=== PATIENT | female | born 1960 | race Caucasian/White ===

== ENCOUNTER 2016-06-22 08:10 | Emergency (ER) | payer MEDICAID ==
[~2016-06-22] VITALS: Ht 157.5 cm; Wt 68.9 kg
[~2016-06-22 08:10] MED LIST: AMIT25TA9 PO; BISA-8 PO; BLAC40CA3 PO; CARI350T21 PO; DULO60CA PO; IBUP600T27 PO; MEDR5TAB4 PO; METH10SO PO; METH750T3 PO; NAPR220T56 PO; OXYB5TAB62 PO; PANTOPRAZOLE SOD DR 40 MG TAB PO; PREMARIN 0.625 MG PO; ROPI0.252 PO
[2016-06-22] MEDS ORDERED: ONDANSETRON HCL 4 MG/2 ML VIAL IV ONE (09:45)
[2016-06-22] MEDS ORDERED: KETOROLAC TROMETH 60MG/2ML VIAL IM ONE (10:00)
[2016-06-22 11:05] VITALS: BP 142/72
== END 2016-06-22 11:25 | disposition home or self-care (01) ==
LOC: ER 08:10
DX: N39.0 Urinary tract infection, site not specified (principal); F17.210 Nicotine dependence, cigarettes, uncomplicated; F11.10 Opioid abuse, uncomplicated; Z79.899 Other long term (current) drug therapy
CPT/HCPCS: 76775; 96372; 99284; J1885

== ENCOUNTER 2016-11-23 09:13 | Observation (INO) | payer MEDICAID ==
[~2016-11-23] VITALS: Ht 157.5 cm; Wt 70.8 kg
[~2016-11-23 09:13] MED LIST changes: +CARI-316 PO; -CARI350T21 PO
[2016-11-23 10:11] LABS: Urine Bilirubin Negative (Negative); Urine Blood Negative /uL (Negative); Urine Color Yellow (Yellow); Urine Glucose Normal (Normal); Urine Ketone Negative (Negative); Urine Nitrite Negative (Negative); Urine RBC <1 /hpf (0 - 4); Urine Squamous Epithelial Cell FEW /hpf (<5); Urine Urobilinogen Normal (Negative)
[2016-11-23 11:02] LABS: Basophils # (auto) 0.1 uL; CONDITION Y; Eosinophils # (auto) 0.1 uL; Eosinophils % (auto) 2.2 % (0.0-7.0); Hematocrit 30.5 % (36.0-46.0); Hemoglobin 10.1 g/dL (12.2-16.2); Lymphocytes # (auto) 2.8 uL; Lymphocytes % (auto) 43.6 % (10.0-50.0); Mean Corpuscular Hemoglobin 28.3 pg (28.0-32.0); Mean Corpuscular Hgb Conc. 33.2 g/dL (32.0-36.0); Mean Platelet Volume 7.5 fL (7.4-10.4); Monocytes # (auto) 0.4 uL; Monocytes % (auto) 5.7 % (0.0-12.0); Neutrophils % (auto) 47.5 % (37.0-80.0); Platelet Count (auto) 283 10^3/uL (140-450); Red Cell Distribution Width 15.4 % (11.6-16.0); White Blood Cell 6.4 10^3/uL (4.4-10.8)
[2016-11-23 11:18] LABS: Albumin 3.3 g/dL (3.4-5.0); BUN/Creatinine Ratio 13.8; Calcium 8.3 mg/dL (8.5-10.1); Potassium 3.9 mmol/L (3.5-5.1)
[2016-11-23 11:20] LABS: Bilirubin, Total 0.2 mg/dL (0.2-1.0); Total Protein 7.3 g/dL (6.4-8.2)
[2016-11-23 11:34] LABS: B-Type Natriuretic Peptide 33.76 pg/mL (0-100)
[2016-11-23 11:55] LABS: Temperature: 23.3 C (20.0-25.0)
[2016-11-23 12:00] LABS: INR 0.95 (0.9-1.15); Partial Thromboplastin Time 25.9 sec (22.64-33.71); Prothrombin Time 10.3 sec (9.37-12.3)
[2016-11-23 13:28] VITALS: BP 122/51
[2016-11-23] MEDS ORDERED: cefTRIAXone 1GM/50ML D5W 50 ML IV ONE (14:45)
[2016-11-23] MEDS ORDERED: HYDROcodone-ACET 10/325MG TAB PO ONE (15:30)
== END 2016-11-23 15:37 | disposition home or self-care (01) | DRG 463 ==
LOC: ER 09:13 → OVERFLOW 11:23 → ER 15:37
PROVIDERS: ADMIT Family Medicine; ATTEND Family Medicine
DX: N39.0 Urinary tract infection, site not specified (principal); D50.8 Other iron deficiency anemias; R60.0 Localized edema; Z82.49 Family history of ischemic heart disease and other diseases of the circulatory system; F17.210 Nicotine dependence, cigarettes, uncomplicated; Z79.899 Other long term (current) drug therapy; Z90.49 Acquired absence of other specified parts of digestive tract
CPT/HCPCS: 36415; 71010; 80053; 81001; 83735; 83880; 85025; 85610; 85730; 93970; 96365; 99285; G0378; J0696

== ENCOUNTER 2018-03-08 19:02 | Emergency (ER) | payer MEDICAID ==
[~2018-03-08] VITALS: Ht 157.5 cm; Wt 68.0 kg
[~2018-03-08 19:02] MED LIST changes: -CARI-316 PO; +CARI350T22 PO; +OXYB5TAB24 PO; -OXYB5TAB62 PO; -ROPI0.252 PO; +ROPI0.254 PO
[2018-03-08 19:51] VITALS: BP 152/86
[2018-03-08] MEDS: KETOROLAC TROMETH 60MG/2ML VIAL IM ONE (22:55)
== END 2018-03-08 22:55 | disposition home or self-care (01) ==
LOC: ER 19:02
DX: S80.212A Abrasion, left knee, initial encounter (principal); F17.210 Nicotine dependence, cigarettes, uncomplicated; Z79.899 Other long term (current) drug therapy; Z90.49 Acquired absence of other specified parts of digestive tract; Z98.51 Tubal ligation status; W01.198A Fall on same level from slipping, tripping and stumbling with subsequent striking against other object, initial encounter; Y93.89 Activity, other specified; Y99.8 Other external cause status; Y92.89 Other specified places as the place of occurrence of the external cause
CPT/HCPCS: 73562; 96372; 99283; J1885

== ENCOUNTER 2021-03-07 08:46 | Emergency (ER) | payer MEDICAID ==
[~2021-03-07] VITALS: Ht 157.5 cm; Wt 72.1 kg
[~2021-03-07 08:46] MED LIST changes: +AMIT25TA12 PO; -AMIT25TA9 PO; +METH750T22 PO; -METH750T3 PO; +NAPR1TAB93 PO; -NAPR220T56 PO
[2021-03-07 09:15] VITALS: BP 141/64
[2021-03-07] MEDS ORDERED: KETOROLAC TROMETH 60MG/2ML VIAL IM ONE (10:00)
[2021-03-07 10:27] LABS: Basophils # (auto) 0 10 ^3/uL (0-0.2); Basophils % (auto) 0.3 % (0.0-2.0); Eosinophils # (auto) 0.1 10 ^3/uL (0-0.8); Eosinophils % (auto) 2.8 % (0.0-7.0); Hematocrit 35.5 % (36.0-46.0); Hemoglobin 11.8 g/dL (12.2-16.2); Lymphocytes # (auto) 2.7 10 ^3/uL (0.4-5.4); Lymphocytes % (auto) 54.7 % (10.0-50.0); Mean Corpuscular Hemoglobin 28.8 pg (28.0-32.0); Mean Corpuscular Hgb Conc. 33.3 g/dL (32.0-36.0); Mean Corpuscular Volume 86.5 fL (80.0-100.0); Monocytes # (auto) 0.4 10 ^3/uL (0-1.3); Monocytes % (auto) 8.1 % (0.0-12.0); Neutrophils # (auto) 1.7 10 ^3/uL (1.6-8.6); Neutrophils % (auto) 34.1 % (37.0-80.0); Nucleated Red Blood Cells % 0.2 %; Red Blood Cells 4.11 10^6/uL (4.0-5.20); Red Cell Distribution Width 14.7 % (11.8-14.3); White Blood Cell 4.9 10^3/uL (4.4-10.8)
[2021-03-07 10:55] LABS: Urine Bacteria FEW /hpf (None Seen); Urine Blood Negative /uL (Negative); Urine Specific Gravity 1.009 (1.001-1.035); Urine WBC 2 /hpf (0 - 5)
[2021-03-07 11:01] LABS: BUN/Creatinine Ratio 14.6; Potassium 4.8 mmol/L (3.5-5.1)
== END 2021-03-07 11:27 | disposition home or self-care (01) ==
LOC: ER 08:46
DX: N20.0 Calculus of kidney (principal); K43.9 Ventral hernia without obstruction or gangrene; F17.210 Nicotine dependence, cigarettes, uncomplicated; Z90.49 Acquired absence of other specified parts of digestive tract; Z90.89 Acquired absence of other organs; Z79.1 Long term (current) use of non-steroidal anti-inflammatories (NSAID); Z79.899 Other long term (current) drug therapy
CPT/HCPCS: 36415; 74176; 80048; 81001; 85025; 96372; 99284; J1885

== ENCOUNTER 2021-06-27 03:33 | Emergency (ER) | payer MEDICAID ==
[~2021-06-27] VITALS: Ht 157.5 cm; Wt 72.1 kg
[2021-06-27] MEDS ORDERED: MORPHINE SULFATE 4 MG/ML SYR/VIAL IM ONE (04:00)
[2021-06-27 05:45] VITALS: BP 114/56
== END 2021-06-27 06:25 | disposition home or self-care (01) ==
LOC: ER 03:33 → EDBD 03:33 → ER 06:25
DX: S82.851A Displaced trimalleolar fracture of right lower leg, initial encounter for closed fracture (principal); F17.210 Nicotine dependence, cigarettes, uncomplicated; Z90.49 Acquired absence of other specified parts of digestive tract; Z90.89 Acquired absence of other organs; Z79.899 Other long term (current) drug therapy; W06.XXXA Fall from bed, initial encounter; Y93.89 Activity, other specified; Y92.89 Other specified places as the place of occurrence of the external cause; Y99.8 Other external cause status
CPT/HCPCS: 29515; 73590; 73610; 96372; 99284; J2270

== ENCOUNTER 2023-07-30 18:16 | Emergency (ER) | payer MEDICAID ==
[~2023-07-30] VITALS: Ht 157.5 cm; Wt 73.3 kg
[~2023-07-30 18:16] MED LIST changes: -AMIT25TA12 PO; +AMIT25TA20 PO; +BLAC40CA2 PO; -BLAC40CA3 PO; +CARI-578 PO; -CARI350T22 PO; -DULO60CA PO; +DULO60CA41 PO; +IBUP-1454 PO; -IBUP600T27 PO; +METH-1182 PO; -METH750T22 PO; -ROPI0.254 PO; +ROPI5TAB20 PO
[2023-07-30 19:25] LABS: Basophils # (auto) 0 10 ^3/uL (0-0.2); Basophils % (auto) 0.6 % (0.0-2.0); Eosinophils # (auto) 0.1 10 ^3/uL (0-0.8); Eosinophils % (auto) 2.4 % (0.0-7.0); Hematocrit 34.3 % (36.0-46.0); Hemoglobin 11.5 g/dL (12.2-16.2); Lymphocytes # (auto) 2.1 10 ^3/uL (0.4-5.4); Lymphocytes % (auto) 36.2 % (10.0-50.0); Mean Corpuscular Hemoglobin 28.9 pg (28.0-32.0); Mean Corpuscular Hgb Conc. 33.4 g/dL (32.0-36.0); Mean Corpuscular Volume 86.7 fL (80.0-100.0); Monocytes # (auto) 0.5 10 ^3/uL (0-1.3); Neutrophils # (auto) 3.1 10 ^3/uL (1.6-8.6); Neutrophils % (auto) 52.8 % (37.0-80.0); Red Blood Cells 3.96 10^6/uL (4.0-5.20); White Blood Cell 5.9 10^3/uL (4.4-10.8)
[2023-07-30 19:40] LABS: Alanine Aminotransferase 24 U/L (7-40); Albumin 4.5 g/dL (3.2-4.8); Alkaline Phosphatase 87 U/L (46-116); Anion Gap 7 (5-15); Aspartate Aminotransferase 31 U/L (13-40); BUN/Creatinine Ratio 14.4 (10.0-20.0); Bilirubin, Total 0.4 mg/dL (0.2-1.0); Blood Urea Nitrogen 14 mg/dL (9-23); Carbon Dioxide 25 mmol/L (20-30); Chloride 103 mmol/L (98-107); Glucose 102 mg/dL (74-106); Potassium 4.9 mmol/L (3.5-5.1); Sodium 135 mmol/L (136-145)
[2023-07-30 19:41] LABS: Total Protein 7.8 g/dL (5.7-8.2)
[2023-07-30 22:30] LABS: Urine Bacteria None Seen /hpf (None Seen)
[2023-07-30 22:38] LABS: Urine Blood Negative /uL (Negative); Urine Clarity Clear (Clear); Urine Color Light-Yellow (Yellow); Urine Protein, UAD Negative (Negative); Urine Specific Gravity 1.018 (1.001-1.035); Urine Urobilinogen Normal (Negative); Urine WBC <1 /hpf (0 - 5); Urine pH 6.5 (5.0-9.0)
[2023-07-30 22:40] VITALS: O2SAT 97
[2023-07-30] MEDS ORDERED: ZOFR4T PO (23:02)
[2023-07-30] MEDS ORDERED: POLY335015 PO (23:02)
[2023-07-30] MEDS ORDERED: DICY10CA PO (23:02)
[2023-07-30] MEDS ORDERED: FAMO20TA10 PO (23:02)
[2023-07-30] MEDS: SODIUM CHLORIDE 0.9% 1,000 ML IV ONE (23:07)
[2023-07-30] MEDS: ONDANSETRON HCL 4 MG/2 ML VIAL IV ONE (23:07)
[2023-07-30] MEDS: MORPHINE SULFATE 4 MG/ML SYR/VIAL IV ONE (23:07)
[2023-07-30 23:30] VITALS: BP 125/69; PULSE 85; RESP 13
== END 2023-07-30 23:42 | disposition home or self-care (01) ==
LOC: ER 18:16
DX: N20.0 Calculus of kidney (principal); K42.9 Umbilical hernia without obstruction or gangrene; K44.9 Diaphragmatic hernia without obstruction or gangrene; K59.00 Constipation, unspecified; F17.210 Nicotine dependence, cigarettes, uncomplicated; Z90.49 Acquired absence of other specified parts of digestive tract; Z98.51 Tubal ligation status
CPT/HCPCS: 36415; 74176; 80053; 81001; 83690; 85025; 96374; 96375; 99285; J2270; J2405; J7030

== ENCOUNTER 2023-08-05 15:36 | Emergency (ER) | payer MEDICAID ==
[~2023-08-05] VITALS: Ht 157.5 cm; Wt 71.6 kg
[~2023-08-05 15:36] MED LIST changes: +DICY10CA PO; +FAMO20TA10 PO; +POLY335015 PO; +ZOFR4T PO
[2023-08-05 17:15] LABS: Basophils # (auto) 0 10 ^3/uL (0-0.2); Basophils % (auto) 0.5 % (0.0-2.0); Eosinophils # (auto) 0.1 10 ^3/uL (0-0.8); Eosinophils % (auto) 2.3 % (0.0-7.0); Hematocrit 34.1 % (36.0-46.0); Hemoglobin 11.1 g/dL (12.2-16.2); Lymphocytes # (auto) 1.9 10 ^3/uL (0.4-5.4); Mean Corpuscular Hemoglobin 28.3 pg (28.0-32.0); Mean Corpuscular Hgb Conc. 32.6 g/dL (32.0-36.0); Mean Corpuscular Volume 86.9 fL (80.0-100.0); Monocytes # (auto) 0.3 10 ^3/uL (0-1.3); Monocytes % (auto) 7.3 % (0.0-12.0); Neutrophils # (auto) 2.4 10 ^3/uL (1.6-8.6); Neutrophils % (auto) 49.9 % (37.0-80.0); Red Blood Cells 3.93 10^6/uL (4.0-5.20); Red Cell Distribution Width 15.2 % (11.8-14.3); White Blood Cell 4.7 10^3/uL (4.4-10.8)
[2023-08-05 17:21] LABS: Chloride 107 mmol/L (98-107); Potassium 4.4 mmol/L (3.5-5.1); Sodium 138 mmol/L (136-145)
[2023-08-05 17:22] LABS: Anion Gap 6 (5-15); Calcium 9.8 mg/dL (8.5-10.1); Carbon Dioxide 25 mmol/L (20-30)
[2023-08-05 17:27] LABS: BUN/Creatinine Ratio 15.6 (10.0-20.0); Blood Urea Nitrogen 15 mg/dL (9-23); Glucose 104 mg/dL (74-106)
[2023-08-05] MEDS: HYDROcodone-ACET 10/325MG TAB PO ONE (18:26)
[2023-08-05] MEDS ORDERED: CEPH500C PO (19:01)
[2023-08-05] MEDS ORDERED: BACDST PO (19:01)
[2023-08-05] MEDS ORDERED: IBUP-1454 PO (19:01)
[2023-08-05] MEDS ORDERED: ACE3T PO (19:01)
[2023-08-05 19:32] VITALS: BP 116/60; PULSE 87; RESP 19; TEMP 97.7; O2SAT 97
== END 2023-08-05 19:33 | disposition home or self-care (01) ==
LOC: ER 15:36
DX: L03.115 Cellulitis of right lower limb (principal); F17.210 Nicotine dependence, cigarettes, uncomplicated; F19.10 Other psychoactive substance abuse, uncomplicated; E66.01 Morbid (severe) obesity due to excess calories; Z68.28 Body mass index [BMI] 28.0-28.9, adult; Z79.899 Other long term (current) drug therapy; Z87.442 Personal history of urinary calculi; Z90.49 Acquired absence of other specified parts of digestive tract; Z90.89 Acquired absence of other organs; Z98.51 Tubal ligation status; Z96.661 Presence of right artificial ankle joint
CPT/HCPCS: 36415; 73590; 80048; 85025

== ENCOUNTER 2025-02-21 01:24 | Emergency (ER) | payer MEDICAID ==
[~2025-02-21] VITALS: Ht 157.5 cm; Wt 66.0 kg
[~2025-02-21 01:24] MED LIST changes: +ACE3T PO; +BACDST PO; +CEPH500C PO
--- NOTE | 2025-02-21 02:26 | ED.PDOC ---
Mitesh. trauma (HPI) HPI Comments 64 year old female presents to the ED with a chief complaint of fall injury onset today around 00:00. Patient states she was asleep, fell out of the bed hitting a metal rail, experiencing laceration to RT side forehead. Patient states she woke up experiencing bleeding from laceration, currently experiencing headache. Denies nausea, vomiting, diarrhea, chest pain, shortness of breath, dizziness, fever, chills, blurred vision. No other symptoms or modifying factors present at this time. Chief Complaint: Fall Injury Time Seen by MD: 02:20 Primary Care Provider: MARIZA Reviewed notes: Medications, Allergies Allergies: Coded Allergies: NO KNOWN ALLERGIES (Unverified , 10/23/14) Home Meds Active Scripts Acetaminophen W/ Codeine (Tylenol W/Cod #3) 1 Tab Tb, 1 TAB PO Q6HP PRN, #20 TAB Prov:ILIR BUCKNER PAC 08/05/23 Ibuprofen (Ibuprofen) 600 Mg Tab, 1 TAB PO Q6HP PRN, #30 TAB Prov:ILIR BUCKNER PAC 08/05/23 Cephalexin Monohydrate (Cephalexin) 500 Mg Cap, 1 CAP PO QID for 10 Days, #40 CAP Prov:ILIR BUCKNER PAC 08/05/23 Sulfamethoxazole W/Trimethopri (Bactrim Ds Tablet) 1 Tab Tb, 1 TAB PO BID for 10 Days, #20 TAB Prov:ILIR BUCKNER PAC 08/05/23 Famotidine (PEPCID TABLET) 20 Mg Tb, 1 TAB PO BID for 30 Days, #60 TAB Prov:JARROD PROCTOR Q FINANCIAL ACCOUNTING MANAGER 07/30/23 Polyethylene Glycol 3350 (Miralax) 17 Gm Pow, 1 EA PO DAILY, #12 EA as needed for constipation Prov:JARROD PROCTOR Q FINANCIAL ACCOUNTING MANAGER 07/30/23 Ondansetron Odt 4MG Tab (ZOFRAN PO) 4 Mg Tb, 1 TAB PO Q8HPRN PRN, #10 TAB as needed for nausea vomiting ODT TAB-DISSOLVE IN MOUTH, THEN SWALLOW Prov:JARROD PROCTOR Q FINANCIAL ACCOUNTING MANAGER 07/30/23 Dicyclomine Hcl (BENTYL CAPSULE) 10 Mg Cp, 2 CAP PO TID, #30 CAP Prov:JARROD PROCTOR Q FINANCIAL ACCOUNTING MANAGER 07/30/23 Reported Medications Methadone Hcl (Methadone Hcl) 10 Mg/5 Ml [place], 140 MG PO DAILY 05/14/14 Naproxen Sodium (Naproxen Sodium) 220 Mg Tab, 220 MG PO PRN PRN for MILD PAIN OR TEMP>100.4, TAB 05/14/14 Cimicifuga [place] (Black Coh (Black Cohosh) 40 Mg Cap, 1 CAP PO TIDWM, CAP 05/14/14 Bisacodyl (Gentle Laxative) 5 Mg Tab, 5 MG PO PRN PRN for con, TAB 05/14/14 Duloxetine Hcl (Cymbalta) 60 Mg Cap, 60 MG PO DAILY, CAP 05/14/14 Ropinirole Hydrochloride (Ropinirole Hcl) 0.25 Mg Tab, 0.25 MG PO HS, TAB 05/14/14 Carisoprodol (Carisoprodol) 350 Mg Tab, 350 MG PO DAILY, TAB 05/14/14 Oxybutynin Chloride (Ditropan Xl) 5 Mg Tab, 5 MG PO BID, TAB 05/14/14 [Medroxyprogester5 Mg] (Medroxyprogesterone Aceta) 5 MG TAB No Conflict Check, 5 MG PO DAILY 08/28/12 [[id number] Mg] (Ibuprofen) 600 MG TAB No Conflict Check, 600 MG PO TID 08/28/12 [Amitriptyline H25 Mg] (Amitriptyline Hcl) 25 MG TAB No Conflict Check, 25 MG PO HS 08/28/12 [Pantoprazole Sod Dr 40 Mg Tab] No Conflict Check, 40 MG PO DAILY 08/28/12 [Premarin 0.625 Mg Tablet] No Conflict Check, 1 TAB PO DAILY 08/28/12 [[id number] Mg] (Methocarbamol) 750 MG TAB No Conflict Check, 750 MG PO TID 08/28/12 Information Source: Patient, Relative Mode of Arrival: Ambulatory Severity: Moderate Timing: Hours Duration: Since onset Prehospital treatment: None Location: Head Location of laceration: Head Mechanism: Fall Associated signs and symtoms: Headache Past Medical History PAST MEDICAL HISTORY: Kidney Stones Surgical History: Cholecystectomy, , Tonsillectomy, Tubal Ligation FURNITURE DIPPER History: No Pertinent FURNITURE DIPPER History Family History Family History: No family hx of Heart yoel, No family hx of HTN Social History Smoker: Cigarettes, Less Than 1 Pack/Day Alcohol: Sober Drugs: Heroin, Other Lives In: Home Constitutional: denies: chills, diaphoresis, fatigue, fever, malaise, sweats, weakness, others EENTM: denies: blurred vision, double vision, ear bleeding, ear discharge, ear drainage, ear pain, ear ringing, eye pain, eye redness, hearing loss, mouth pain, mouth swelling, nasal discharge, nose bleeding, nose congestion, nose pain, photophobia, tearing, throat pain, throat swelling, voice changes, others Respiratory: denies: cough, hemoptysis, orthopnea, SOB at rest, shortness of breath, SOB with excertion, stridor, wheezing, others Cardiovascular: denies: chest pain, dizzy spells, diaphoresis, Dyspnea on exertion, edema, irregular heart beat, left arm pain, lightheadedness, palpitations, PND, syncope, others Gastrointestinal: denies: abdomen distended, abdominal pain, blood streaked bowels, constipated, diarrhea, dysphagia, difficulty swallowing, hematemesis, melena, nausea, poor appetite, poor fluid intake, rectal bleeding, rectal pain, vomiting, others Genitourinary: denies: abnormal vagina bleeding, burning, dyspareunia, dysuria, flank pain, frequency, hematuria, incontinence, pain, , vagina dis charge, urgency, others Neurological: reports: headache; denies: dizziness, fainting, left sided numbness, left sided weakness, numbness, paresthesia, pre-existing deficit, right sided numbness, right sided weakness, seizure, speech problems, tingling, tremors, weakness, others Musculoskeletal: denies: back pain, gout, joint pain, joint swelling, muscle pain, muscle stiffness, neck pain, others Integumetry: reports: laceration (RT forehead); denies: bruises, change in color, change in hair/nails, dryness, lesions, lumps, rash, wounds, others Allergic/Immunocompromised: denies: Difficulty Healing, Frequent Infections, Hives, Itching, others Hematologic/Lymphatic: denies: anemia, blood clots, easy bleeding, easy bruising, swollen glands, others Endocrine: denies: excessive hunger, excessive sweating, excessive thirst, excessive urination, flushing, intolerance to cold, intolerance to heat, unexplained weight gain, unexplained weight loss, others Psychiatric: denies: anxiety, bipolar disorder, depression, hopeless, panic disorder, schizophrenia, sleepless, suicidal, others All Other Systems: Reviewed and Negative Physical Exam General Appearance: Normal HEENT: Normal ENT Inspection, Pharynx Normal, TMs Normal Neck: Full Range of Motion, Non-Tender, Normal, Normal Inspection Respiratory: Chest Non-Tender, Lungs Clear, No Accessory Muscle Use, No Respiratory Distress, Normal Breath Sounds Cardiovascular: No Edema, No JVD, No Murmur, No Gallop, Normal Peripheral Pulses, Regular Rate/Rhythm Breast Exam: Deferred Gastrointestinal: No Organomegaly, Non Tender, No Pulsatile Mass, Normal Bowel Sounds, Soft Genitalia: Deferred Pelvic: Deferred Rectal: Deferred Extremities: No calf tenderness, Normal capillary refill, Normal inspection, Normal range of motion, Non-tender, No pedal edema Musculoskeletal : Apperance: Normal Neurologic: Alert, industrial conveyor belt repairer II-XII nml as Tested, No Motor Deficits, Normal Affect, Normal Mood, No Sensory Deficits Cerebellar Function: Normal Reflexes: Normal Skin: Dry, Normal Color, Warm Lymphatic: No Adenopathy Was a procedure done? Was a procedure done?: Yes Sedation Sedation?: No Informed consent obtained: Yes Laceration Repair : Location scalp Length 3 cm Anesthetic: Lidocaine Laceration Repair Prep: Saline Laceration Repair Wound Comple: epidermis/dermis repair, subcut tissue repair Laceration Repair: Skin, SQ, [place] (7 juli) Informed consent obtained: Yes Risks, benefits, and alternati: Yes X-Ray, Labs, Meds, VS Vital Signs Date Time Temp Pulse Resp B/P (MAP) Pulse Ox O2 Delivery O2 Flow Rate FiO2 02/21/25 04:49 98.1 86 18 152/77 (102) 94 98.1 02/21/25 04:42 96 Room Air* 0 21 02/21/25 01:36 97.7 90 18 150/75 (100) 96 97.7 02/21/25 01:28 97.7 90 16 150/75 96 97.7 [facility] [id number] [place] [id number] Ph: [phone] DIAGNOSTIC IMAGING Diagnostic Imaging Report : [id number] Signed PATIENT: MERA GARNETT ACCT: [id number] UNIT: [id number] : 1960 LOC: ER ROOM / BED: / AGE / SEX: 64 / F ADM STATUS: REG ER SERVICE [id number] ORDERING PHYSICIAN: MENDY JONES MD PROCEDURE(s): HWOCT - HEAD WITHOUT CONTRAST REASON: head inj ORDER NUMBER(s): [id number], ACCESSION NUMBER(s): [id number] EXAM: CT HEAD WITHOUT CONTRAST INDICATION: head inj TECHNIQUE: CT of the head without intravenous contrast. Radiation Dose : 1. Head: CT Dose: CTDI volume is 52.43 mGy. Dose-length product is 1033.33 mGy*cm The dose indicators for CT are the volume Computed Tomography (CT) Dose Index (CTDIvol) and the Dose Length Product (DLP), and are measured in units of mGy and mGy-cm, respectively. These indicators are not patient dose, but values generated from the CT scanner acquisition factors. The report includes radiation exposure data for exposures received during this examination. COMPARISON: None FINDINGS: There is no evidence of acute intracranial hemorrhage, extra-axial collection, mass effect, midline shift, herniation or hydrocephalus. The ventricles, sulci and cisterns are age appropriate. The boucher-white differentiation is intact. Patchy periventricular and subcortical white matter hypoattenuation is nonspecific but may be related to small vessel ischemic disease. Right maxillary mucosal sinus disease. The remaining visualized paranasal sinuses and mastoid air cells are clear. The surrounding soft tissues and osseous structures are unremarkable. IMPRESSION: 1. No acute intracranial abnormality. Radiation optimization: All CT scans at this facility use at least one of these dose optimization techniques: automated exposure control mA and/or kV adjustment per patient size (includes targeted exams where dose is matched to clinical indication) or iterative reconstruction. ATED BY: DAVON LEON MD DICTATED DATE/TIME: 02/21/25242 SIGNED BY: DAVON LEON MD SIGNED DATE/TIME: 02/21/25242 CC: Time of 1ST Reevaluation: 02:50 Reevaluation 1ST: Unchanged Patient Education/Counseling: Diagnosis, Treatment, Prognosis Family Education/Counseling: Diagnosis, Treatment, Prognosis Departure 1 Departure Time of Disposition: 04:50 Impression: Primary Impression: Scalp laceration Additional Impression: Head injury Disposition: 01 HOME / SELF CARE / HOMELESS Condition: Stable Discharged With: Self Critical Care Note Critical Care Time?: No Stability Stability form required: No Heart Score Heart Score: Heart Score Response (Comments) Value History N/A 0 EKG N/A 0 Age N/A 0 Risk Factors N/A 0 Troponin N/A 0 Total 0 I personally scribed for MENDY JONES MD ([email or web address]) on 02/21/25 at 02:26. Electronically submitted by Lorna Mitchell ([email or web address]). I personally scribed for MENDY JONES MD ([email or web address]) on 02/21/25 at 03:37. Electronically submitted by Lorna Mitchell ([email or web address]). MENDY JONES MD Feb 21, 2025 02:26
--- NOTE | 2025-02-21 02:45 | DVH ---
EXAM: CT HEAD WITHOUT CONTRAST INDICATION: head inj TECHNIQUE: CT of the head without intravenous contrast. Radiation Dose : 1. Head: CT Dose: CTDI volume is 52.43 mGy. Dose-length product is 1033.33 mGy*cm The dose indicators for CT are the volume Computed Tomography (CT) Dose Index (CTDIvol) and the Dose Length Product (DLP), and are measured in units of mGy and mGy-cm, respectively. These indicators are not patient dose, but values generated from the CT scanner acquisition factors. The report includes radiation exposure data for exposures received during this examination. COMPARISON: None FINDINGS: There is no evidence of acute intracranial hemorrhage, extra-axial collection, mass effect, midline shift, herniation or hydrocephalus. The ventricles, sulci and cisterns are age appropriate. The boucher-white differentiation is intact. Patchy periventricular and subcortical white matter hypoattenuation is nonspecific but may be related to small vessel ischemic disease. Right maxillary mucosal sinus disease. The remaining visualized paranasal sinuses and mastoid air cells are clear. The surrounding soft tissues and osseous structures are unremarkable. IMPRESSION: 1. No acute intracranial abnormality. Radiation optimization: All CT scans at this facility use at least one of these dose optimization techniques: automated exposure control mA and/or kV adjustment per patient size (includes targeted exams where dose is matched to clinical indication) or iterative reconstruction.
[2025-02-21 04:42] VITALS: O2SAT 96
[2025-02-21 04:49] VITALS: BP 152/77; PULSE 86; RESP 18; TEMP 98.1; O2SAT 94
== END 2025-02-21 04:52 | disposition home or self-care (01) ==
LOC: ER 01:24
DX: S01.01XA Laceration without foreign body of scalp, initial encounter (principal); S09.90XA Unspecified injury of head, initial encounter; Z90.89 Acquired absence of other organs; Z90.49 Acquired absence of other specified parts of digestive tract; F17.210 Nicotine dependence, cigarettes, uncomplicated; Z98.51 Tubal ligation status; W06.XXXA Fall from bed, initial encounter; Y93.89 Activity, other specified; Y92.89 Other specified places as the place of occurrence of the external cause; Y99.8 Other external cause status
CPT/HCPCS: 12032; 70450; 99284; A4649